=== PATIENT | female | born 1965 | race Caucasian/White ===

== ENCOUNTER 2017-04-03 08:13 | Day surgery (SDC) | payer BC ==
[~2017-04-03 08:13] MED LIST: Famotidine IV* 10 MG/ML 2 ML (20 mg) IV ONE; Morphine INJ* 2 MG/ML 1 ML SYRINGE IV PRN; PROCHLORPERAZINE INJ 5 MG/ML 2 ML VIAL IV PRN; fentaNYL* 50 MCG/ML 2 ML VIAL (100 MCG VIAL) IV PRN; oxyCODONE/Acetamin 5/325 MG* TAB PO PRN
[2017-04-03] MEDS ORDERED: Buffered Lidocaine 0.9% SYRIN* 5 ML/SYR SYRINGE ONE (08:23)
[2017-04-03] MEDS ORDERED: ceFAZolin 2 GM PREMIX(*) 2 GM/50 ML BAG IVPB ONE (08:23)
[2017-04-03] MEDS ORDERED: Famotidine IV* 10 MG/ML 2 ML (20 mg) ONE (08:37)
[2017-04-03] MEDS ORDERED: fentaNYL* 50 MCG/ML 2 ML VIAL (100 MCG VIAL) ONE (08:40)
[2017-04-03] MEDS ORDERED: KETAMINE HCL* 50 MG/ML 10 ML VIAL ONE (08:40)
[2017-04-03] MEDS ORDERED: Midazolam* 1 MG/ML 5 ML VIAL (5 MG) ONE (08:40)
[2017-04-03] MEDS ORDERED: Bupivacaine 0.5% SDV PF* 30 ML VIAL ONE (09:29)
[2017-04-03] MEDS ORDERED: Dexamethasone IV* 4 MG/ML 1 ML (4 MG) ONE (10:07)
[2017-04-03] MEDS ORDERED: Ondansetron INJ* 2 MG/ML VIAL ONE (10:07)
[2017-04-03] MEDS ORDERED: Propofol* 10 MG/ML 20 ML BTL IV PUSH ONE (10:07)
[2017-04-03] MEDS ORDERED: Ketorolac INJ* 30 MG/ML 1 ML VIAL ONE (10:07)
[2017-04-03] MEDS ORDERED: Lidocaine 2% PF * 5 ML VIAL ONE (10:07)
[2017-04-03 11:53] VITALS: BP 115/72
--- NOTE | 2017-04-04 00:33 | OP ---
DATE OF OPERATION: 04/03/17 - [facility] DATE OF : 65 SURGEON: Domenic Mathew DPM [employer] SPECIALIST: None. ANESTHESIOLOGIST: Duane Laguna MD ANESTHESIA: MAC with local. PRE-OP DIAGNOSIS: Painful cyst at the lateral aspect of the fourth left toe. POST-OP DIAGNOSIS: Painful cyst at the lateral aspect of the fourth left toe. OPERATIVE PROCEDURE: Excision of the cyst from lateral aspect of the fourth left toe. PATHOLOGY: Resected cyst from the fourth left toe. HEMOSTASIS: Pneumatic ankle tourniquet. ESTIMATED BLOOD LOSS: Less than 3 cc. INDICATIONS: The patient with subcutaneous cyst at the lateral aspect of the fourth left toe with local pain with pressure and the patient opts for surgery at this time to excise the cyst to reduce pain, to reduce pressure, and for definitive diagnosis. DESCRIPTION OF PROCEDURE: The patient was brought to the operating room, placed on the operating room table in the supine position. The anesthesia department administered IV sedation and a peripheral nerve block was performed about the left forefoot with a 1:1 mixture of 1% lidocaine plain and 0.5% Marcaine plain. The foot was then prepped and draped in the usual fashion. The left foot was then exsanguinated with Esmarch bandage and the pneumatic ankle tourniquet was inflated to 250 mmHg about a well-padded left ankle. Attention was directed to the dorsolateral aspect of the fourth left toe, where a linear incision was made. The incision was deepened through subcutaneous tissue, care being taken to retract neurovascular structures and to cauterize superficial bleeders as needed. The subcutaneous cyst was noted. Fairly well demarcated fibrous tissue, which was free from surrounding soft tissue attachments and sent out as field specimen. The area was inspected. No further visible abnormal tissue on portions of the cyst. The surgical site was flushed with copious amount of normal sterile saline. Subcutaneous tissues were reapproximated and secured with 4-0 Polysorb and the skin was reapproximated with 5-0 nylon. 4 mg of dexamethasone phosphate was infiltrated about the surgical site. The surgical site was then dressed with Xeroform gauze, light compressive dressing consisting of 4x4 gauze, Brandon, and light Coban wrap. The pneumatic ankle tourniquet was deflated about the left ankle and a prompt hyperemic response was noted about all 5 digits of the patient's left foot. Having appeared to tolerate the procedure and the anesthesia well, the patient was transported via cart from the operating room to Recovery in satisfactory condition. Cap refill less than 3 seconds to all digits of the left foot. [id number]/[facility] #: [id number] MTDD
== END 2017-04-03 12:15 | disposition home or self-care (01) ==
LOC: OREAST 08:13
PROVIDERS: ATTEND Podiatrist Foot Surgery
DX: M67.472 Ganglion, left ankle and foot (principal)
CPT/HCPCS: 88304; J0690; J1100; J1885; J2250; J2405; J2704; J3010